=== PATIENT | male | born 1955 | race African-American/Black ===

== ENCOUNTER 2021-07-13 11:41 | Outpatient (CLI) | payer OTHER ==
[2021-07-13 12:00] LABS: #Eosinphils 0.1 thou/uL (0.0-0.7); #Lymphocytes 1.2 thou/uL (1.20-3.40); #Monocytes 0.3 thou/uL (0.11-0.59); #Neutrophils 1.3 thou/uL (1.40-6.50); %Basophils 1.4 % (0.0-1.0); %Eosinophils 2.5 % (0.0-10.0); %Lymphocytes 41.5 % (21.0-51.0); %Monocytes 11.3 % (0.0-10.0); %Neutrophils 43.2 % (42.0-75.0); Hemoglobin 14.1 g/dL (14.0-18.0); Mean Corpuscular Hemoglobin 32.1 pg (27.0-31.0); Mean Corpuscular Volume 103.5 fL (78.0-98.0); Mean Platelet Volume 6.1 fL (7.4-10.4); Platelet Count 178 thou/uL (130-400); RBC Distribution Width 12.1 % (11.5-14.5); Red Blood Cell (RBC) Count 4.39 mill/uL (4.70-6.10); White Blood Cell (WBC) Count 2.9 thou/uL (4.8-10.8)
[2021-07-13 12:18] LABS: ALT (SGPT) 13 U/L (8-55); AST (SGOT) 21 U/L (5-34); Albumin 4.1 g/dL (3.4-4.8); Alkaline Phosphatase 38 U/L (40-110); Anion Gap 12 mmol/L (10-20); BUN (Urea Nitrogen) 16 mg/dL (8.4-25.7); Bilirubin, Total 0.4 mg/dL (0.2-1.2); Calc. Creatinine Clearance 0 mL/min (70-130); Calcium 9.7 mg/dL (7.8-10.44); Carbon Dioxide 28 mmol/L (23-31); Chloride 106 mmol/L (98-107); Globulin 3.4 g/dL (2.4-3.5); Glucose 95 mg/dL (80-115); Potassium 4.8 mmol/L (3.5-5.1); Protein, Total 7.5 g/dL (5.8-8.1); Sodium 141 mmol/L (136-145)
[2021-07-13 18:12] LABS: Ferritin 170.51 ng/mL (22-322)
== END 2021-07-13 11:42 | disposition home or self-care (01) ==
LOC: MADLAB 11:41
PROVIDERS: ATTEND Family Medicine
DX: D64.9 Anemia, unspecified (principal); D75.89 Other specified diseases of blood and blood-forming organs
CPT/HCPCS: 36415; 80053; 82607; 82728; 82746; 85025

== ENCOUNTER 2024-04-08 12:01 | Emergency (ER) | payer OTHER, MEDICAID | END 2024-04-08 13:58 | disposition home or self-care (01) | LOC: MADERS 12:01 | DX: M17.12 Unilateral primary osteoarthritis, left knee (principal); I73.9 Peripheral vascular disease, unspecified; F17.220 Nicotine dependence, chewing tobacco, uncomplicated ==